=== PATIENT | female | born 1995 | race American Indian/Alaskan Native ===

== ENCOUNTER 2016-11-25 19:10 | Emergency (ER) | payer MEDICAID, OTHER ==
[2016-11-25 20:12] VITALS: BP 145/93
--- NOTE | 2016-11-25 23:07 | Emergency Department Report ---
ED Female HPI - General Chief complaint: Urogenital-Female Stated complaint: VAGINAL IRRITATION Time Seen by Provider: 11/25/16 23:04 Source: patient Mode of arrival: Ambulatory Limitations: No Limitations - History of Present Illness Initial comments: This is a 21-year-old female, previously unknown to me. Presents to the ER complaining of vaginal irritation and dysuria for 3 days. symptoms do not radiate. They have no exacerbating or relieving factors. No abdominal pain. No nausea, vomiting or diarrhea. Doesn't think that she is . MD Complaint: dysuria -: Gradual Severity: mild Quality: burning Consistency: constant Improves with: none Worsens with: none Are you Now?: No Associated Symptoms: dysuria. denies: abdominal pain, nausea/vomiting, fever/ chills, headaches, loss of appetite, hematuria, rash, seizure, shortness of breath, syncope, weakness - Related Data Sexually active: Yes Home Medications Medication Instructions Recorded Confirmed Last Taken Tablet 1 tab PO DAILY 08/21/16 08/21/16 08/21/16 17:00 Previous Rx's Medication Instructions Recorded Last Taken Type Ibuprofen [Motrin 800 MG tab] 800 mg PO TID PRN #30 tablet 08/22/16 Unknown Rx oxyCODONE /ACETAMINOPHEN [Percocet 1 - 2 tab PO Q4HR PRN #30 tablet 08/22/16 Unknown Rx 5/325 mg] Nitrofurantoin [place]/M-Cryst 100 mg PO Q12HR #13 capsule 11/26/16 Unknown Rx [Macrobid CAP] Allergies Allergy/AdvReac Type Severity Reaction Status Date / Time No Known Allergies Allergy Verified 12/11/13 21:20 ED Review of Systems ROS: Stated complaint: VAGINAL IRRITATION Other details as noted in HPI Constitutional: denies: fever Eyes: denies: vision change ENT: denies: epistaxis Respiratory: denies: cough Cardiovascular: denies: chest pain Gastrointestinal: denies: abdominal pain Genitourinary: dysuria Musculoskeletal: denies: back pain Skin: denies: rash, lesions Neurological: denies: headache, weakness Psychiatric: denies: anxiety ED Past Medical Hx - Past Medical History Hx Hypertension: No Hx Congestive Heart Failure: No Hx Diabetes: No Hx Deep Vein Thrombosis: No Hx Renal Disease: No Hx Sickle Cell Disease: No Hx Seizures: No Hx Asthma: No Hx COPD: No Hx HIV: No Additional medical history: Uterine Fibroids - Social History Smoking Status: Current Every Day Smoker - Medications Home Medications: Home Medications Medication Instructions Recorded Confirmed Last Taken Type Tablet 1 tab PO DAILY 08/21/16 08/21/16 08/21/16 17:00 History Ibuprofen [Motrin 800 MG tab] 800 mg PO TID PRN #30 tablet 08/22/16 Unknown Rx oxyCODONE /ACETAMINOPHEN [Percocet 1 - 2 tab PO Q4HR PRN #30 tablet 08/22/16 Unknown Rx 5/325 mg] Nitrofurantoin [place]/M-Cryst 100 mg PO Q12HR #13 capsule 11/26/16 Unknown Rx [Macrobid CAP] ED Physical Exam - General Limitations: No Limitations General appearance: alert, in no apparent distress - Head Head exam: Present: atraumatic, normocephalic - Eye Eye exam: Present: normal appearance, EOMI. Absent: nystagmus - ENT ENT exam: Present: normal exam, normal orophraynx, mucous membranes moist. Absent: normal external ear exam - Neck Neck exam: Present: normal inspection, full ROM. Absent: tenderness, meningismus - Respiratory Respiratory exam: Present: normal lung sounds bilaterally. Absent: respiratory distress, wheezes, rales, rhonchi, stridor, chest wall tenderness - Cardiovascular Cardiovascular Exam: Present: regular rate, normal rhythm, normal heart sounds. Absent: bradycardia, tachycardia, irregular rhythm, systolic murmur, diastolic murmur, rubs, gallop - GI/Abdominal GI/Abdominal exam: Present: soft, normal bowel sounds. Absent: distended, tenderness, guarding, rebound, rigid, pulsatile mass - External exam: Present: normal external exam Speculum exam: Present: normal speculum exam. Absent: vaginal bleeding Bi-manual exam: Present: normal bi-manual exam, other (escorted by Skyla Chen). Absent: cervical motion tendernes, adnexal tenderness, adnexal mass , uterine enlargement, uterine tenderness - Extremities Exam Extremities exam: Present: normal inspection, full ROM, normal capillary refill. Absent: tenderness, pedal edema, joint swelling, calf tenderness - Back Exam Back exam: Present: normal inspection, full ROM. Absent: tenderness, CVA tenderness (R), CVA tenderness (L), muscle spasm, paraspinal tenderness, vertebral tenderness - Neurological Exam Neurological exam: Present: alert, oriented X3, normal gait, other (Extraocular movements intact. Tongue midline. No facial droop. Facial sensation intact to light touch in the V1, V2, V3 distribution bilaterally. 5 and 5 strength in 4 extremities.. Sensation is intact to light touch in 4 extremities.). Absent : motor sensory deficit - Psychiatric Psychiatric exam: Present: normal affect, normal mood - Skin Skin exam: Present: warm, dry, intact, normal color. Absent: rash ED Course Vital Signs 11/25/16 20:06 Temperature 98.2 F Pulse Rate 63 Respiratory 18 Rate Blood Pressure 145/93 O2 Sat by Pulse 100 Oximetry - Reevaluation(s) Reevaluation #1: 11/26/16 00:35 Differential diagnosis: Nonspecific vaginitis, urinary tract infection Assessment and plan: 21-year-old female with dysuria, and complaint of vaginal irritation. Urinalysis suggests urinary tract infection. During her gynecologic exam, I do not appreciate significant blood. Hematuria is suggested on her urinalysis, may be hemorrhagic cystitis. She is afebrile with reassuring vital signs with the exception of slight hypertension. She is tolerating liquid feeds and looks clinically well. She will be started on Macrobid. She is instructed to follow up with the primary care or anthropologist physical for her elevated blood pressure. Return precautions are reviewed. Prep also demonstrated trichomoniasis, which she will be treated for. STD precautions were reviewed with the patient. 11/26/16 00:36 ED Medical Decision Making - Lab Data Vital Signs 11/25/16 20:06 Temperature 98.2 F Pulse Rate 63 Respiratory 18 Rate Blood Pressure 145/93 O2 Sat by Pulse 100 Oximetry Lab Results 11/25/16 Range/Units 23:10 Urine Color Yellow (Yellow) Urine Turbidity Cloudy (Clear) Urine pH 6.0 (5.0-7.0) Ur Specific [place] 1.026 (1.003-1.030) Urine Protein 30 mg/dl (Negative) mg/dL Urine Glucose (UA) Neg (Negative) mg/dL Urine Ketones Neg (Negative) mg/dL Urine Blood Mod (Negative) Urine Nitrite Neg (Negative) Urine Bilirubin Neg (Negative) Urine Urobilinogen < 2.0 (<2.0) mg/dL Ur Leukocyte Esterase Lg (Negative) Urine WBC (Auto) > 182.0 H (0.0-6.0) /HPF Urine RBC (Auto) 106.0 (0.0-6.0) /HPF U Epithel Cells (Auto) 4.0 (0-13.0) /HPF Urine Bacteria (Auto) 1+ (Negative) /HPF Urine Mucus 2+ /HPF Urine HCG, Qual Negative (Negative) Critical care attestation.: If time is entered above; I have spent that time in minutes in the direct care of this critically ill patient, excluding procedure time. ED Disposition Clinical Impression: Trichomoniasis Disposition: DISCHARGED TO HOME OR SELFCARE Is pt being admited?: No Does the pt Need Aspirin: No Condition: Stable Instructions: Trichomoniasis (ED), Pelvic Inflammatory Disease (ED) Additional Instructions: Curiously suggested urinary tract infection, and trichomoniasis, which is typically considered a sexually transmitted disease. you were given antibiotics for trichomoniasis, and in case you have either gonorrhea and/or Chlamydia. Avoid consumption of alcohol. We typically treat young females with unexplained lower abdominal pain to protect your ability to have children safely in the future. Cultures were sent today, and results will be available next 3-5 days. Please have your primary care doctor call the medical records department to obtain your culture results. Take the antibiotic therapy as directed. I recommend outpatient testing for sexually transmitted diseases, including hepatitis, syphilis and HIV. I also recommend that you abstain from sexual activity until you have completed her antibiotic therapy, a physician states that it is safe for you to resume sexual activity, and any partners that you have been sexually active with have been tested/treated/evaluated for sexual transmitted diseases. Please follow-up with physician within 3-5 days. I recommend that you return to the ER right away with worsening pain, migration of pain, intractable nausea/vomiting, inability tolerate liquid feeds. In addition, your blood pressure was elevated, and this should be followed up by her primary care doctor within the next 2 weeks. Long-term complications of hypertension/elevated blood pressure include stroke, heart attack, disability, , paralysis, permanent loss of quality of life. Prescriptions: Nitrofurantoin [place]/M-Cryst [Macrobid CAP] 100 mg PO Q12HR #13 capsule Referrals: CLARA SCOTT MD [Primary Care Provider] - 3-5 Days LIUDMILA MINOR MD, PHD [Staff Physician] - 3-5 Days GISSELL GARCIA MD [Staff Physician] - 3-5 Days PABLO PRECIADO MD [Staff Physician] - 3-5 Days
[2016-11-25 23:49] LABS: Bacteria,Urine 1+ /HPF (Negative); Bilirubin,Urine NEG (Negative); Blood,Urine MOD (Negative); Ketones,Urine NEG (Negative); Leukocyte Esterase,Urine LG (Negative); Mucus,Urine 2+ /HPF; Nitrite,Urine NEG (Negative); Urobilinogen,Urine < 2.0 mg/dL (<2.0)
[2016-11-25 23:53] LABS: WBC,Urine > 182.0 /HPF (0.0-6.0)
[2016-11-26] MEDS ORDERED: MACROBID PO ONE (00:15)
[2016-11-26] MEDS ORDERED: ROCEPHIN IM ONE (00:37)
[2016-11-26] MEDS ORDERED: ZITHROMAX PO ONE (00:37)
[2016-11-26] MEDS ORDERED: FLAGYL PO ONE (00:37)
[2016-11-26] MEDS ORDERED: XYLOCAINE 1% MPF 5 mL INFILTRATI ONE (00:37)
== END 2016-11-26 01:21 | disposition home or self-care (01) ==
LOC: ED 19:10
DX: A59.9 Trichomoniasis, unspecified (principal); F17.200 Nicotine dependence, unspecified, uncomplicated
CPT/HCPCS: 81001; 81025; 87086; 87210; 87591; 96372; 99284; J0696